=== PATIENT | male | born 1940 | race Two or more races ===

== ENCOUNTER 2018-09-27 16:54 | Emergency (ER) | payer OTHER ==
[~2018-09-27] VITALS: Ht 162.6 cm; Wt 104.3 kg
[~2018-09-27 16:54] MED LIST: COZAAR50 MG; FUROSEMIDE20 MG; GLIMEPIRIDE4 MG; LOSARTAN POTASS50 MG PO; METFORMIN HCL1000 MG; NABUMETONE500 MG PO; NEURONTIN300 MG; NORVASC10 MG; PERCOCET 5/3251 TAB PO; ZOCOR40 MG
== END 2018-09-27 21:04 | disposition home or self-care (01) ==
LOC: ER 16:54
DX: J11.1 Influenza due to unidentified influenza virus with other respiratory manifestations (principal); R50.9 Fever, unspecified; E11.9 Type 2 diabetes mellitus without complications

== ENCOUNTER 2022-12-17 17:17 | Emergency (ER) | payer OTHER ==
[~2022-12-17] VITALS: Ht 165.1 cm; Wt 72.6 kg
[2022-12-17] MEDS ORDERED: PROSCAR5 MG (18:19)
[2022-12-17] MEDS ORDERED: KAPVAY0.1 MG (18:21)
== END 2022-12-17 20:56 | disposition home or self-care (01) ==
LOC: ER 17:17
DX: R10.84 Generalized abdominal pain (principal); I10 Essential (primary) hypertension; E11.9 Type 2 diabetes mellitus without complications; Z79.84 Long term (current) use of oral hypoglycemic drugs

== ENCOUNTER 2023-08-28 10:12 | Inpatient (IN) | payer OTHER ==
[~2023-08-28] VITALS: Ht 167.6 cm; Wt 81.6 kg
[~2023-08-28 10:12] MED LIST changes: +KAPVAY0.1 MG; +PROSCAR5 MG
[2023-08-28 11:28] LABS: HEMATOCRIT 40.6 % (39.0-48.0); HEMOGLOBIN 13.8 g/dL (13-16.00); MEAN CELL VOLUME 87.6 fL (80.0-100.00); MEAN CORPUSCULAR HEMOGLOBIN 29.8 pg (27.00-32.0); PLATELET COUNT 167 K/uL (150-450); RED BLOOD COUNT 4.64 M/uL (4.00-6.00); RED CELL DISTRIBUTION WIDTH 13.5 % (11.5-14.5)
[2023-08-28 11:37] LABS: PROTHROMBIN TIME 10.5 SECONDS (9.0-11.5)
[2023-08-28 12:08] LABS: CALCIUM 9.3 mg/dL (8.5-10.1); CREATININE SERUM 1.14 mg/dL (0.70-1.30); GFR 61.05; POTASSIUM 4.13 mEq/L (3.5-5.1)
[2023-08-28 13:07] LABS: URINE APPEARANCE Clear; URINE BILIRRUBIN Negative (NEGATIVE); URINE BLOOD Negative; URINE COLOR Yellow; URINE LEUKOCYTE Negative; URINE NITRATE Negative; URINE PROTEIN 30 (NEGATIVE)
[2023-08-28 13:08] LABS: URINE BACTERIA 12.5 uL (0.0-1933); URINE EPITHELIAL CELLS 2.3 uL (0.0-38.8); URINE RBC 5.8 uL (0.0-20.8); URINE WBC 7.1 uL (0.0-23.2)
[2023-08-28 13:25] LABS: URINE GLUCOSE 100 MG/DL (NEGATIVE)
[2023-08-30 08:15] LABS: CHOL HDL RATIO 2.1 (0-5.0); TSH 2.67 uIU/mL (0.358-3.74)
[2023-09-01 09:27] LABS: HEMATOCRIT 34.1 % (39.0-48.0); HEMOGLOBIN 11.4 g/dL (13-16.00); MEAN CELL VOLUME 88.9 fL (80.0-100.00); MEAN CORPUSCULAR HEMOGLOBIN 29.7 pg (27.00-32.0); MEAN CORPUSCULAR HGB CONC 33.4 g/dl (32.0-36.0); PLATELET COUNT 189 K/uL (150-450); RED BLOOD COUNT 3.83 M/uL (4.00-6.00); RED CELL DISTRIBUTION WIDTH 13.4 % (11.5-14.5)
[2023-09-01 10:34] LABS: ALBUMIN 2.5 gm/dL (3.4-5.0); BILIRUBIN TOTAL 0.57 mg/dL (0.3-1.2); CALCIUM 8.3 mg/dL (8.5-10.1); CREATININE SERUM 1.13 mg/dL (0.70-1.30); GFR 61.67; GLOBULINA 3.2 G/DL (2.4-3.5); POTASSIUM 3.76 mEq/L (3.5-5.1); TOTAL PROTEIN 5.7 gm/dL (6.4-8.2)
[2023-09-03 06:55] LABS: HEMATOCRIT 29.6 % (39.0-48.0); HEMOGLOBIN 10.1 g/dL (13-16.00); MEAN CORPUSCULAR HEMOGLOBIN 30.1 pg (27.00-32.0); MEAN CORPUSCULAR HGB CONC 34.2 g/dl (32.0-36.0); PLATELET COUNT 167 K/uL (150-450); RED BLOOD COUNT 3.36 M/uL (4.00-6.00); RED CELL DISTRIBUTION WIDTH 13.2 % (11.5-14.5)
[2023-09-03 07:17] LABS: ALBUMIN 2.3 gm/dL (3.4-5.0); BILIRUBIN TOTAL 0.33 mg/dL (0.3-1.2); CALCIUM 8.5 mg/dL (8.5-10.1); CREATININE SERUM 1.1 mg/dL (0.70-1.30); GFR 63.62; GLOBULINA 3.2 G/DL (2.4-3.5); POTASSIUM 3.76 mEq/L (3.5-5.1); TOTAL PROTEIN 5.5 gm/dL (6.4-8.2)
[2023-09-04 14:42] LABS: PH,URINE 5.5 (5.0-8.0); URINE APPEARANCE Turbid; URINE BACTERIA 183.9 uL (0.0-1933); URINE BILIRRUBIN Moderate (NEGATIVE); URINE BLOOD Large; URINE COLOR Orange; URINE EPITHELIAL CELLS 15.1 uL (0.0-38.8); URINE LEUKOCYTE Moderate; URINE NITRATE Negative; URINE WBC 271.6 uL (0.0-23.2)
[2023-09-04 15:31] LABS: URINE GLUCOSE 100 MG/DL (NEGATIVE); URINE PROTEIN 300 (NEGATIVE); URINE RBC > 10558.9 uL (0.0-20.8)
[2023-09-04 15:32] LABS: URINE CRYSTALS MANY /HPF; URINE MUCUS HEAVY; URINE YEAST NEGATIVE /hpf
[2023-09-07 17:43] LABS: HEMATOCRIT 33.5 % (39.0-48.0); HEMOGLOBIN 11.1 g/dL (13-16.00); MEAN CELL VOLUME 89.2 fL (80.0-100.00); MEAN CORPUSCULAR HEMOGLOBIN 29.5 pg (27.00-32.0); MEAN CORPUSCULAR HGB CONC 33.1 g/dl (32.0-36.0); PLATELET COUNT 192 K/uL (150-450); RED BLOOD COUNT 3.75 M/uL (4.00-6.00); RED CELL DISTRIBUTION WIDTH 13.6 % (11.5-14.5)
[2023-09-07 18:08] LABS: ALBUMIN 2.1 gm/dL (3.4-5.0); BILIRUBIN TOTAL 0.22 mg/dL (0.3-1.2); CALCIUM 8.6 mg/dL (8.5-10.1); CREATININE SERUM 1.2 mg/dL (0.70-1.30); GFR 57.54; GLOBULINA 3.4 G/DL (2.4-3.5); POTASSIUM 4.29 mEq/L (3.5-5.1); TOTAL PROTEIN 5.5 gm/dL (6.4-8.2)
[2023-09-10 02:16] LABS: URINE APPEARANCE Cloudy; URINE BILIRRUBIN Negative (NEGATIVE); URINE BLOOD Large; URINE COLOR Yellow; URINE LEUKOCYTE Small; URINE NITRATE Negative; URINE PROTEIN 30 (NEGATIVE)
[2023-09-10 02:19] LABS: URINE BACTERIA 162.5 uL (0.0-1933); URINE EPITHELIAL CELLS 30.4 uL (0.0-38.8); URINE RBC 1051.5 uL (0.0-20.8); URINE WBC 39.7 uL (0.0-23.2)
[2023-09-10 02:48] LABS: URINE GLUCOSE 100 MG/DL (NEGATIVE)
[2023-09-10 02:53] LABS: HEMATOCRIT 34.8 % (39.0-48.0); HEMOGLOBIN 11.2 g/dL (13-16.00); MEAN CELL VOLUME 88.7 fL (80.0-100.00); MEAN CORPUSCULAR HEMOGLOBIN 28.6 pg (27.00-32.0); MEAN CORPUSCULAR HGB CONC 32.2 g/dl (32.0-36.0); PLATELET COUNT 178 K/uL (150-450); RED BLOOD COUNT 3.92 M/uL (4.00-6.00); RED CELL DISTRIBUTION WIDTH 13.7 % (11.5-14.5)
[2023-09-10 02:58] LABS: ALBUMIN 2.1 gm/dL (3.4-5.0); BILIRUBIN TOTAL 0.29 mg/dL (0.3-1.2); CALCIUM 8.5 mg/dL (8.5-10.1); CREATININE SERUM 1.43 mg/dL (0.70-1.30); GLOBULINA 3.2 G/DL (2.4-3.5); POTASSIUM 4.69 mEq/L (3.5-5.1); TOTAL PROTEIN 5.3 gm/dL (6.4-8.2)
== END 2023-09-11 20:36 | disposition home or self-care (01) | DRG 64 ==
LOC: ER 10:12 → MEDJ 19:03
PROVIDERS: General Practice; Internal Medicine Infectious Disease; ADMIT Specialist; ATTEND Specialist
PROC: BW28ZZZ Computerized Tomography (CT Scan) of Head (ICD-10-PCS; principal; 2023-08-28)
PROC: B246ZZZ Ultrasonography of Right and Left Heart (ICD-10-PCS; 2023-08-28)
PROC: B343ZZ3 Ultrasonography of Right Common Carotid Artery, Intravascular (ICD-10-PCS; 2023-08-28)
PROC: 3E0F7GC Introduction of Other Therapeutic Substance into Respiratory Tract, Via Natural or Artificial Opening (ICD-10-PCS; 2023-08-28)
PROC: 4A12X4Z Monitoring of Cardiac Electrical Activity, External Approach (ICD-10-PCS; 2023-08-29)
PROC: B030ZZZ Magnetic Resonance Imaging (MRI) of Brain (ICD-10-PCS; 2023-08-30)
PROC: 0D9670Z Drainage of Stomach with Drainage Device, Via Natural or Artificial Opening (ICD-10-PCS; 2023-08-30)
PROC: 02HV33Z Insertion of Infusion Device into Superior Vena Cava, Percutaneous Approach (ICD-10-PCS; 2023-08-31)
DX: I63.522 Cerebral infarction due to unspecified occlusion or stenosis of left anterior cerebral artery (principal); J69.0 Pneumonitis due to inhalation of food and vomit; I50.1 Left ventricular failure, unspecified; I63.9 Cerebral infarction, unspecified; I11.0 Hypertensive heart disease with heart failure; R47.01 Aphasia; E83.51 Hypocalcemia; E11.40 Type 2 diabetes mellitus with diabetic neuropathy, unspecified; E11.649 Type 2 diabetes mellitus with hypoglycemia without coma; I25.10 Atherosclerotic heart disease of native coronary artery without angina pectoris; I13.10 Hypertensive heart and chronic kidney disease without heart failure, with stage 1 through stage 4 chronic kidney disease, or unspecified chronic kidney disease; I50.9 Heart failure, unspecified; Z79.4 Long term (current) use of insulin; R13.14 Dysphagia, pharyngoesophageal phase; I25.9 Chronic ischemic heart disease, unspecified
CPT/HCPCS: 70553

== ENCOUNTER 2023-09-15 08:49 | Inpatient (IN) | payer OTHER ==
[~2023-09-15] VITALS: Ht 152.4 cm; Wt 72.6 kg
[2023-09-15 10:34] LABS: PH,URINE 5.5 (5.0-8.0); URINE APPEARANCE Clear; URINE BILIRRUBIN Negative (NEGATIVE); URINE BLOOD Moderate; URINE COLOR Yellow; URINE GLUCOSE Negative (NEGATIVE); URINE LEUKOCYTE Trace; URINE NITRATE Negative
[2023-09-15 10:38] LABS: URINE BACTERIA 66.7 uL (0.0-1933); URINE EPITHELIAL CELLS 7.7 uL (0.0-38.8); URINE RBC 60.2 uL (0.0-20.8); URINE WBC 28.6 uL (0.0-23.2)
[2023-09-15 10:44] LABS: HEMATOCRIT 34.8 % (39.0-48.0); HEMOGLOBIN 11.1 g/dL (13-16.00); MEAN CELL VOLUME 88.1 fL (80.0-100.00); MEAN CORPUSCULAR HEMOGLOBIN 28.2 pg (27.00-32.0); PLATELET COUNT 196 K/uL (150-450); RED BLOOD COUNT 3.94 M/uL (4.00-6.00); RED CELL DISTRIBUTION WIDTH 14.2 % (11.5-14.5)
[2023-09-15 11:02] LABS: ALBUMIN 1.7 gm/dL (3.4-5.0); BILIRUBIN TOTAL 0.33 mg/dL (0.3-1.2); BILIRUBIN,CONJUGATED 0.1 mg/dL (0.0-0.2); BILIRUBIN,UNCONJUGATED 0.23 mg/dL (0.0-0.6); CALCIUM 8.4 mg/dL (8.5-10.1); CREATININE SERUM 1.35 mg/dL (0.70-1.30); GFR 50.23; POTASSIUM 3.52 mEq/L (3.5-5.1); TOTAL PROTEIN 6.4 gm/dL (6.4-8.2)
[2023-09-15 11:04] LABS: URINE PROTEIN 100 (NEGATIVE)
[2023-09-16 00:28] LABS: INR 1.21; PARTIAL THROMBOPLASTIN TIME 27.3 SECONDS (22.0-34.0); PROTHROMBIN TIME 12.5 SECONDS (9.0-11.5)
[2023-09-17 06:24] LABS: HEMATOCRIT 30.2 % (39.0-48.0); HEMOGLOBIN 9.8 g/dL (13-16.00); MEAN CORPUSCULAR HGB CONC 32.5 g/dl (32.0-36.0); PLATELET COUNT 198 K/uL (150-450); RED BLOOD COUNT 3.39 M/uL (4.00-6.00); RED CELL DISTRIBUTION WIDTH 13.7 % (11.5-14.5)
[2023-09-17 06:41] LABS: ALBUMIN 1.3 gm/dL (3.4-5.0); BILIRUBIN TOTAL 0.32 mg/dL (0.3-1.2); CALCIUM 7.4 mg/dL (8.5-10.1); CREATININE SERUM 1.67 mg/dL (0.70-1.30); GFR 39.29; GLOBULINA 3.6 G/DL (2.4-3.5); POTASSIUM 3.43 mEq/L (3.5-5.1); TOTAL PROTEIN 4.9 gm/dL (6.4-8.2)
[2023-09-18 09:04] LABS: ALBUMIN 1.4 gm/dL (3.4-5.0); BILIRUBIN TOTAL 0.47 mg/dL (0.3-1.2); CALCIUM 7.6 mg/dL (8.5-10.1); CREATININE SERUM 1.52 mg/dL (0.70-1.30); GFR 43.8; GLOBULINA 3.9 G/DL (2.4-3.5); POTASSIUM 3.53 mEq/L (3.5-5.1); TOTAL PROTEIN 5.3 gm/dL (6.4-8.2)
[2023-09-19 07:46] LABS: HEMATOCRIT 26.3 % (39.0-48.0); MEAN CELL VOLUME 89.3 fL (80.0-100.00); MEAN CORPUSCULAR HGB CONC 33.1 g/dl (32.0-36.0); PLATELET COUNT 178 K/uL (150-450); RED BLOOD COUNT 2.95 M/uL (4.00-6.00); RED CELL DISTRIBUTION WIDTH 13.7 % (11.5-14.5)
[2023-09-19 07:49] LABS: ALBUMIN 1.1 gm/dL (3.4-5.0); BILIRUBIN TOTAL 0.47 mg/dL (0.3-1.2); CALCIUM 6.9 mg/dL (8.5-10.1); CREATININE SERUM 1.48 mg/dL (0.70-1.30); GFR 45.17; GLOBULINA 3.3 G/DL (2.4-3.5); TOTAL PROTEIN 4.4 gm/dL (6.4-8.2)
[2023-09-19 07:55] LABS: MEAN CORPUSCULAR HEMOGLOBIN 29.4 pg (27.00-32.0)
[2023-09-19 07:56] LABS: HEMOGLOBIN 8.7 g/dL (13-16.00)
[2023-09-19 08:11] LABS: POTASSIUM 2.86 mEq/L (3.5-5.1)
[2023-09-20 06:24] LABS: ALBUMIN 1.2 gm/dL (3.4-5.0); CALCIUM 7.4 mg/dL (8.5-10.1); CREATININE SERUM 1.56 mg/dL (0.70-1.30); GFR 42.51; MAGNESIUM 2.6 mg/dL (1.8-2.4); PHOSPHOROUS 2.7 mg/dL (2.5-4.9); POTASSIUM 3.18 mEq/L (3.5-5.1)
[2023-09-22 06:25] LABS: MEAN CELL VOLUME 86.2 fL (80.0-100.00); MEAN CORPUSCULAR HGB CONC 33.7 g/dl (32.0-36.0); PLATELET COUNT 197 K/uL (150-450); RED BLOOD COUNT 2.65 M/uL (4.00-6.00); RED CELL DISTRIBUTION WIDTH 13.7 % (11.5-14.5)
[2023-09-22 06:31] LABS: HEMATOCRIT 22.8 % (39.0-48.0); HEMOGLOBIN 7.7 g/dL (13-16.00)
[2023-09-22 06:52] LABS: ALBUMIN 1.1 gm/dL (3.4-5.0); BILIRUBIN TOTAL 0.32 mg/dL (0.3-1.2); CREATININE SERUM 1.04 mg/dL (0.70-1.30); GFR 67.87; GLOBULINA 3.2 G/DL (2.4-3.5); MAGNESIUM 2.5 mg/dL (1.8-2.4); POTASSIUM 3.52 mEq/L (3.5-5.1); TOTAL PROTEIN 4.3 gm/dL (6.4-8.2)
[2023-09-22 12:43] LABS: ALBUMIN 1.3 gm/dL (3.4-5.0); BILIRUBIN TOTAL 0.43 mg/dL (0.3-1.2); CALCIUM 7.4 mg/dL (8.5-10.1); CHOL HDL RATIO 5.8 (0-5.0); CREATININE SERUM 1.09 mg/dL (0.70-1.30); GFR 64.29; GLOBULINA 3.9 G/DL (2.4-3.5); POTASSIUM 3.8 mEq/L (3.5-5.1); TOTAL PROTEIN 5.2 gm/dL (6.4-8.2)
[2023-09-22 14:22] LABS: URINE BILIRRUBIN NEGATIVE (NEGATIVE); URINE BLOOD LARGE; URINE GLUCOSE NEGATIVE (NEGATIVE); URINE LEUKOCYTE SMALL; URINE NITRATE POSITIVE
[2023-09-22 14:30] LABS: URINE APPEARANCE BLOODY; URINE BACTERIA MODERATE; URINE COLOR RED; URINE EPITHELIAL CELLS 0-4 /HPF; URINE PROTEIN >=300 (NEGATIVE); URINE RBC LOADED /HPF; URINE WBC 13-20 /hpf
[2023-09-24 02:05] LABS: HEMATOCRIT 32.4 % (39.0-48.0); HEMOGLOBIN 10.9 g/dL (13-16.00); MEAN CELL VOLUME 86.4 fL (80.0-100.00); MEAN CORPUSCULAR HEMOGLOBIN 29.1 pg (27.00-32.0); MEAN CORPUSCULAR HGB CONC 33.7 g/dl (32.0-36.0); PLATELET COUNT 255 K/uL (150-450); RED BLOOD COUNT 3.75 M/uL (4.00-6.00); RED CELL DISTRIBUTION WIDTH 13.6 % (11.5-14.5)
[2023-09-24 17:39] LABS: ABG PH 7.464 (7.35-7.45); ABG PO2 114.7 mmHg (80-100)
[2023-09-24 17:40] LABS: BASE EXCESS -3.2 mmol/l; BICARBONATE 18.9 mmol/l (23-25); SaO2 98.7 %; Tco2 19.7 mmol/l; allen test SATISFACTORY; o2 32 %; puncture site RADIAL LEFT
[2023-09-26 07:10] LABS: ALBUMIN 1.3 gm/dL (3.4-5.0); BILIRUBIN TOTAL 0.27 mg/dL (0.3-1.2); CALCIUM 7.4 mg/dL (8.5-10.1); CREATININE SERUM 0.72 mg/dL (0.70-1.30); GFR 103.75; GLOBULINA 3.5 G/DL (2.4-3.5); POTASSIUM 4.37 mEq/L (3.5-5.1); TOTAL PROTEIN 4.8 gm/dL (6.4-8.2)
[2023-09-26 07:52] LABS: HEMATOCRIT 27.3 % (39.0-48.0); HEMOGLOBIN 9.4 g/dL (13-16.00); MEAN CELL VOLUME 88.4 fL (80.0-100.00); MEAN CORPUSCULAR HEMOGLOBIN 30.5 pg (27.00-32.0); MEAN CORPUSCULAR HGB CONC 34.5 g/dl (32.0-36.0); PLATELET COUNT 294 K/uL (150-450); RED BLOOD COUNT 3.09 M/uL (4.00-6.00); RED CELL DISTRIBUTION WIDTH 13.3 % (11.5-14.5)
[2023-09-27 06:16] LABS: HEMOGLOBIN 9.7 g/dL (13-16.00); MEAN CELL VOLUME 85.5 fL (80.0-100.00); MEAN CORPUSCULAR HEMOGLOBIN 29.7 pg (27.00-32.0); MEAN CORPUSCULAR HGB CONC 34.8 g/dl (32.0-36.0); PLATELET COUNT 350 K/uL (150-450); RED BLOOD COUNT 3.28 M/uL (4.00-6.00); RED CELL DISTRIBUTION WIDTH 13.4 % (11.5-14.5)
[2023-09-27 06:31] LABS: INR 1.18; PARTIAL THROMBOPLASTIN TIME 27.9 SECONDS (22.0-34.0); PROTHROMBIN TIME 12.2 SECONDS (9.0-11.5)
[2023-09-27 07:24] LABS: ALBUMIN 1.5 gm/dL (3.4-5.0); ALKALINE PHOSPHATASE 72 U/L (50-136); ALT/SGPT 50 U/L (12-78); ANION GAP 12 (10.0-20.0); AST/SGOT 47 U/L (15-37); BILIRUBIN TOTAL 0.42 mg/dL (0.3-1.2); BILIRUBIN,CONJUGATED < 0.10 mg/dL (0.0-0.2); BILIRUBIN,UNCONJUGATED 0.32 mg/dL (0.0-0.6); BLOOD UREA NITROGEN 18 mg/dL (7-18); BUN CREA RATIO 26 (7.0-25.0); CALCIUM 7.4 mg/dL (8.5-10.1); CARBON DIOXIDE 23 mEq/L (21-32); CHLORIDE 108 mmol/L (98-107); CHOL HDL RATIO 4.5 (0-5.0); CHOLESTEROL 121 mg/dL (0-200); CREATININE SERUM 0.69 mg/dL (0.70-1.30); GFR 108.97; GLOBULINA 3.2 G/DL (2.4-3.5); GLUCOSE FASTING 196 mg/dL (65-100); HDL 27 mg/dl (40-60); LDL 70 mg/dl (0-130); OSMOLALITY SERUM 285 MOSM/KG (275-295); POTASSIUM 4.27 mEq/L (3.5-5.1); SODIUM 139 mmol/L (136-145); TOTAL IRON BINDING CAPACITY 134 ug/dl (250-450); TOTAL PROTEIN 4.7 gm/dL (6.4-8.2); TRIGLYCERIDES 119 mg/dL (0-150); VLDL 23 (0-39)
[2023-09-28 19:49] LABS: URINE BILIRRUBIN NEGATIVE (NEGATIVE); URINE BLOOD LARGE; URINE GLUCOSE NEGATIVE (NEGATIVE); URINE LEUKOCYTE NEGATIVE; URINE NITRATE NEGATIVE; URINE PROTEIN 30 (NEGATIVE); URINE UROBILINOGEN 0.2 E.U./dl
[2023-09-28 20:06] LABS: URINE APPEARANCE CLOUDY
[2023-09-28 20:07] LABS: URINE RBC LOADED /HPF
[2023-09-28 20:10] LABS: URINE BACTERIA MODERATE; URINE CRYSTALS NEGATIVE /HPF; URINE EPITHELIAL CELLS 0-4 /HPF; URINE MUCUS SCANT; URINE WBC 0-2 /hpf; URINE YEAST FEW /hpf
[2023-09-28 20:11] LABS: URINE COLOR YELLOW
[2023-10-01 06:28] LABS: MEAN CELL VOLUME 87.7 fL (80.0-100.00); MEAN CORPUSCULAR HGB CONC 34.7 g/dl (32.0-36.0); PLATELET COUNT 353 K/uL (150-450); RED BLOOD COUNT 2.54 M/uL (4.00-6.00); RED CELL DISTRIBUTION WIDTH 14.5 % (11.5-14.5)
[2023-10-01 06:49] LABS: HEMATOCRIT 22.3 % (39.0-48.0); MEAN CORPUSCULAR HEMOGLOBIN 30.3 pg (27.00-32.0)
[2023-10-01 06:50] LABS: HEMOGLOBIN 7.7 g/dL (13-16.00)
[2023-10-01 06:55] LABS: ALBUMIN 1.5 gm/dL (3.4-5.0); BILIRUBIN TOTAL 0.21 mg/dL (0.3-1.2); CALCIUM 7.6 mg/dL (8.5-10.1); CREATININE SERUM 1.14 mg/dL (0.70-1.30); GFR 61.05; GLOBULINA 2.9 G/DL (2.4-3.5); POTASSIUM 4.5 mEq/L (3.5-5.1); TOTAL PROTEIN 4.4 gm/dL (6.4-8.2)
[2023-10-01 19:16] LABS: HEMATOCRIT 29.6 % (39.0-48.0); HEMOGLOBIN 10.1 g/dL (13-16.00); MEAN CELL VOLUME 87.7 fL (80.0-100.00); MEAN CORPUSCULAR HGB CONC 34.2 g/dl (32.0-36.0); PLATELET COUNT 377 K/uL (150-450); RED BLOOD COUNT 3.37 M/uL (4.00-6.00); RED CELL DISTRIBUTION WIDTH 14.2 % (11.5-14.5)
[2023-10-04 07:47] LABS: HEMATOCRIT 28.7 % (39.0-48.0); HEMOGLOBIN 9.7 g/dL (13-16.00); MEAN CELL VOLUME 88.8 fL (80.0-100.00); MEAN CORPUSCULAR HGB CONC 33.8 g/dl (32.0-36.0); PLATELET COUNT 343 K/uL (150-450); RED BLOOD COUNT 3.23 M/uL (4.00-6.00); RED CELL DISTRIBUTION WIDTH 14.5 % (11.5-14.5)
[2023-10-04 08:03] LABS: INR 1.27; PARTIAL THROMBOPLASTIN TIME 31.9 SECONDS (22.0-34.0); PROTHROMBIN TIME 13.1 SECONDS (9.0-11.5)
[2023-10-04 08:32] LABS: ALBUMIN 1.7 gm/dL (3.4-5.0); BILIRUBIN TOTAL 0.28 mg/dL (0.3-1.2); CREATININE SERUM 1.07 mg/dL (0.70-1.30); GFR 65.68; GLOBULINA 3.2 G/DL (2.4-3.5); MAGNESIUM 1.7 mg/dL (1.8-2.4); PHOSPHOROUS 2.8 mg/dL (2.5-4.9); POTASSIUM 3.96 mEq/L (3.5-5.1); TOTAL PROTEIN 4.9 gm/dL (6.4-8.2)
[2023-10-04 08:38] LABS: ALBUMIN 1.7 gm/dL (3.4-5.0); BILIRUBIN TOTAL 0.3 mg/dL (0.3-1.2); BILIRUBIN,CONJUGATED 0.11 mg/dL (0.0-0.2); BILIRUBIN,UNCONJUGATED 0.19 mg/dL (0.0-0.6); CHOL HDL RATIO 2.4 (0-5.0); TOTAL PROTEIN 4.8 gm/dL (6.4-8.2)
[2023-10-04 10:04] LABS: UREA CLEARANCE 15.3 ML/MIN
[2023-10-07 15:42] LABS: HEMATOCRIT 27.9 % (39.0-48.0); HEMOGLOBIN 9.3 g/dL (13-16.00); MEAN CELL VOLUME 86.6 fL (80.0-100.00); MEAN CORPUSCULAR HEMOGLOBIN 28.9 pg (27.00-32.0); MEAN CORPUSCULAR HGB CONC 33.3 g/dl (32.0-36.0); PLATELET COUNT 245 K/uL (150-450); RED BLOOD COUNT 3.22 M/uL (4.00-6.00); RED CELL DISTRIBUTION WIDTH 14.7 % (11.5-14.5)
[2023-10-07 15:56] LABS: ALBUMIN 1.7 gm/dL (3.4-5.0); BILIRUBIN TOTAL 0.22 mg/dL (0.3-1.2); CREATININE SERUM 1.08 mg/dL (0.70-1.30); GFR 64.98; GLOBULINA 3.2 G/DL (2.4-3.5); POTASSIUM 3.79 mEq/L (3.5-5.1); TOTAL PROTEIN 4.9 gm/dL (6.4-8.2)
[2023-10-09 08:52] LABS: ALBUMIN 1.7 gm/dL (3.4-5.0); BILIRUBIN TOTAL 0.26 mg/dL (0.3-1.2); CALCIUM 8.2 mg/dL (8.5-10.1); CREATININE SERUM 1.17 mg/dL (0.70-1.30); GFR 59.25; GLOBULINA 3.3 G/DL (2.4-3.5); POTASSIUM 3.62 mEq/L (3.5-5.1)
[2023-10-11 06:24] LABS: HEMATOCRIT 29.7 % (39.0-48.0); HEMOGLOBIN 10.4 g/dL (13-16.00); MEAN CORPUSCULAR HEMOGLOBIN 30.4 pg (27.00-32.0); PLATELET COUNT 152 K/uL (150-450); RED BLOOD COUNT 3.42 M/uL (4.00-6.00); RED CELL DISTRIBUTION WIDTH 14.9 % (11.5-14.5)
[2023-10-11 15:10] LABS: INR 1.1; PARTIAL THROMBOPLASTIN TIME 29.8 SECONDS (22.0-34.0); PROTHROMBIN TIME 11.5 SECONDS (9.0-11.5)
[2023-10-11 15:11] LABS: ALBUMIN 1.7 gm/dL (3.4-5.0); ALKALINE PHOSPHATASE 64 U/L (50-136); ALT/SGPT 16 U/L (12-78); ANION GAP 8 (10.0-20.0); AST/SGOT 13 U/L (15-37); BILIRUBIN TOTAL 0.24 mg/dL (0.3-1.2); BILIRUBIN,CONJUGATED < 0.10 mg/dL (0.0-0.2); BILIRUBIN,UNCONJUGATED 0.14 mg/dL (0.0-0.6); BLOOD UREA NITROGEN 38 mg/dL (7-18); BUN CREA RATIO 37 (7.0-25.0); CALCIUM 8.6 mg/dL (8.5-10.1); CARBON DIOXIDE 31 mEq/L (21-32); CHLORIDE 105 mmol/L (98-107); CHOL HDL RATIO 3.1 (0-5.0); CHOLESTEROL 90 mg/dL (0-200); CREATININE SERUM 1.02 mg/dL (0.70-1.30); GFR 69.41; GLOBULINA 3.3 G/DL (2.4-3.5); HDL 29 mg/dl (40-60); LDL 38 mg/dl (0-130); OSMOLALITY SERUM 308 MOSM/KG (275-295); POTASSIUM 3.31 mEq/L (3.5-5.1); SODIUM 141 mmol/L (136-145); TOTAL IRON BINDING CAPACITY 121 ug/dl (250-450); TRIGLYCERIDES 113 mg/dL (0-150); VLDL 22 (0-39)
[2023-10-11 15:52] LABS: GLUCOSE FASTING 412 mg/dL (65-100)
[2023-10-13 07:02] LABS: CALCIUM 8.4 mg/dL (8.5-10.1); CREATININE SERUM 0.86 mg/dL (0.70-1.30); GFR 84.52; POTASSIUM 3.45 mEq/L (3.5-5.1)
[2023-10-13 07:04] LABS: HEMATOCRIT 29.7 % (39.0-48.0); HEMOGLOBIN 10.3 g/dL (13-16.00); MEAN CELL VOLUME 87.1 fL (80.0-100.00); MEAN CORPUSCULAR HEMOGLOBIN 30.1 pg (27.00-32.0); MEAN CORPUSCULAR HGB CONC 34.6 g/dl (32.0-36.0); RED BLOOD COUNT 3.41 M/uL (4.00-6.00); RED CELL DISTRIBUTION WIDTH 14.8 % (11.5-14.5)
[2023-10-13 08:43] LABS: PLATELET COUNT 122 K/uL (150-450)
[2023-10-14 01:20] LABS: ABG PH 7.411 (7.35-7.45); ABG PO2 71.8 mmHg (80-100); ABG pCO2 35.4 mmHg (35-45); SaO2 94.3 %; Tco2 23.1 mmol/l; allen test SATISFACTORY; puncture site RADIAL RIGHT
[2023-10-14 01:21] LABS: o2 50 %
[2023-10-14 11:34] LABS: HEMATOCRIT 31.2 % (39.0-48.0); HEMOGLOBIN 10.2 g/dL (13-16.00); MEAN CORPUSCULAR HEMOGLOBIN 28.8 pg (27.00-32.0); MEAN CORPUSCULAR HGB CONC 32.7 g/dl (32.0-36.0); RED BLOOD COUNT 3.54 M/uL (4.00-6.00); RED CELL DISTRIBUTION WIDTH 15.3 % (11.5-14.5)
[2023-10-14 11:43] LABS: PLATELET COUNT 104 K/uL (150-450)
[2023-10-14 11:55] LABS: ALBUMIN 1.5 gm/dL (3.4-5.0); BILIRUBIN TOTAL 0.39 mg/dL (0.3-1.2); CALCIUM 8.1 mg/dL (8.5-10.1); CREATININE SERUM 1.42 mg/dL (0.70-1.30); GFR 47.38; GLOBULINA 3.1 G/DL (2.4-3.5); POTASSIUM 4.3 mEq/L (3.5-5.1); TOTAL PROTEIN 4.6 gm/dL (6.4-8.2)
[2023-10-14 15:48] LABS: ABG pCO2 37.7 mmHg (35-45); SaO2 95.8 %
[2023-10-14 15:49] LABS: BASE EXCESS -3.7 mmol/l; BICARBONATE 21.1 mmol/l (23-25); Tco2 22.2 mmol/l
[2023-10-14 15:50] LABS: allen test SATISFACTORY; o2 100 %; puncture site RADIAL RIGHT
== END 2023-10-14 20:05 | disposition expired | DRG 871 ==
LOC: ER 08:49 → MEDJ 20:44
PROVIDERS: General Practice; Internal Medicine; Internal Medicine Endocrinology, Diabetes & Metabolism; Internal Medicine Nephrology; Student in an Organized Health Care Education/Training Program; ADMIT Specialist; ATTEND Specialist
PROC: BW21ZZZ Computerized Tomography (CT Scan) of Abdomen and Pelvis (ICD-10-PCS; principal; 2023-09-15)
PROC: 02HV33Z Insertion of Infusion Device into Superior Vena Cava, Percutaneous Approach (ICD-10-PCS; 2023-09-15)
PROC: BW21YZZ Computerized Tomography (CT Scan) of Abdomen and Pelvis using Other Contrast (ICD-10-PCS; 2023-09-20)
PROC: 30233N1 Transfusion of Nonautologous Red Blood Cells into Peripheral Vein, Percutaneous Approach (ICD-10-PCS; 2023-09-22)
PROC: BW21ZZZ Computerized Tomography (CT Scan) of Abdomen and Pelvis (ICD-10-PCS; 2023-09-27)
PROC: 4A12X4Z Monitoring of Cardiac Electrical Activity, External Approach (ICD-10-PCS; 2023-09-28)
PROC: BW21YZZ Computerized Tomography (CT Scan) of Abdomen and Pelvis using Other Contrast (ICD-10-PCS; 2023-10-04)
PROC: 0J983ZZ Drainage of Abdomen Subcutaneous Tissue and Fascia, Percutaneous Approach (ICD-10-PCS; 2023-10-06)
PROC: BW21YZZ Computerized Tomography (CT Scan) of Abdomen and Pelvis using Other Contrast (ICD-10-PCS; 2023-10-11)
PROC: 0JB73ZZ Excision of Back Subcutaneous Tissue and Fascia, Percutaneous Approach (ICD-10-PCS; 2023-10-12)
DX: A41.52 Sepsis due to Pseudomonas (principal); I63.9 Cerebral infarction, unspecified; J69.0 Pneumonitis due to inhalation of food and vomit; L02.211 Cutaneous abscess of abdominal wall; E87.0 Hyperosmolality and hypernatremia; N17.8 Other acute kidney failure; G81.91 Hemiplegia, unspecified affecting right dominant side; K94.22 Gastrostomy infection; L03.311 Cellulitis of abdominal wall; E86.0 Dehydration; I25.10 Atherosclerotic heart disease of native coronary artery without angina pectoris; I11.0 Hypertensive heart disease with heart failure; I50.9 Heart failure, unspecified; Z87.891 Personal history of nicotine dependence; R13.19 Other dysphagia; E11.65 Type 2 diabetes mellitus with hyperglycemia; Z79.4 Long term (current) use of insulin; R31.0 Gross hematuria; I48.91 Unspecified atrial fibrillation; D64.9 Anemia, unspecified; L89.159 Pressure ulcer of sacral region, unspecified stage; L98.423 Non-pressure chronic ulcer of back with necrosis of muscle; L08.89 Other specified local infections of the skin and subcutaneous tissue; E11.40 Type 2 diabetes mellitus with diabetic neuropathy, unspecified; I25.9 Chronic ischemic heart disease, unspecified